=== PATIENT | male | born 1995 | race Hispanic/Latino ===

== ENCOUNTER 2017-09-01 11:03 | Inpatient (IN) | payer OTHER, SELFPAY ==
[2017-09-01 11:56] LABS: Absolute Lymphocytes (CBC) 3.1 K/uL (0.7-4.9); Absolute Monocytes 0.6 K/uL (0.1-1.3); Absolute Neutrophil 3.7 K/uL (1.8-8.0); Eosinophils % 4.8 % (0-4.4); Hematocrit 43.4 % (39.6-49.0); Lymphocytes % 39.3 % (15.3-44.8); MCH 29.1 pg (27.0-35.0); MCV 87.9 fL (80-100); MPV 9.2 fL (7.6-11.3); Monocytes % 7.5 % (3.3-12.3); RBC Red Blood Cell Count 4.94 M/uL (4.33-5.43)
[2017-09-01] MEDS ORDERED: ONDANSETRON 4 MG/2 ML VIAL ONE (11:59)
[2017-09-01] MEDS ORDERED: FENTANYL CITR 100 MCG/2 ML ONE ×2 (11:59→13:40)
[2017-09-01 12:05] LABS: BUN Blood Urea Nitrogen 12 mg/dL (6-20); Bicarbonate 26 mEq/L (21-31); Glucose Level 391 mg/dL (65-120); Potassium 3.9 mEq/L (3.6-5.0); Sodium Level 132 mEq/L (135-145)
--- NOTE | 2017-09-01 12:55 | RAD REPORT ---
EXAM DESCRIPTION: RAD - Foot Left 3 View - 09/01/2017 12:42 pm CLINICAL HISTORY: Left Foot pain FINDINGS: No fracture or dislocation is seen. No bone or joint abnormality is displayed
--- NOTE | 2017-09-01 13:44 | ER ---
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 On Keflex and Naprosyn day 6 for staph. Transition of care: patient was not received from another setting of care. Onset of symptoms is unknown. Initial Sepsis Screen: Does the patient meet any 2 criteria? No. Patient's initial sepsis screen is negative. Does the patient have a suspected source of infection? No. Patient's initial sepsis screen is negative. Care prior to arrival: None. 11:07 Method Of Arrival: Ambulatory 11:07 Acuity: MARKIE 3 hb Historical: - Allergies: 11:10 NKDA; hb - Home Meds: 11:10 Keflex Oral [Active]; Naproxen Oral [Active]; hb - PMHx: 11:10 Diabetes - IDDM; hb - PSHx: 11:10 Tonsillectomy; hb - Immunization history:: Adult Immunizations up to date. - Social history:: Smoking status: Patient uses tobacco products, denies chronic smoking, but will smoke occasionally, smokes one-half pack cigarettes per day. Screenin:29 Abuse screen: Denies threats or abuse. Denies injuries from another. Nutritional aj1 screening: No deficits noted. Tuberculosis screening: No symptoms or risk factors identified. 16:00 Fall Risk None identified. rk2 Assessment: 11:29 General: Appears in no apparent distress. uncomfortable, Behavior is calm, cooperative, aj1 appropriate for age. Pain: Complains of pain in left foot Pain does not radiate. Pain currently is 10 out of 10 on a pain scale. Quality of pain is described as throbbing, Pain began 5 days ago Aggravated by weight bearing. Neuro: Level of Consciousness is awake, alert, obeys commands, Oriented to person, place, time, situation, Speech is normal, Facial symmetry appears normal. Cardiovascular: Patient's skin is warm and dry. Edema is 3+ to left foot. Respiratory: Airway is patent Respiratory effort is even, unlabored, Respiratory pattern is regular, symmetrical. GI: No signs and/or symptoms were reported involving the gastrointestinal system. : No signs and/or symptoms were reported regarding the genitourinary system. EENT: No signs and/or symptoms were reported regarding the EENT system. Derm: redness and swelling noted to left foot. Musculoskeletal: Circulation, motion, and sensation intact. 12:24 Reassessment: Patient appears in no apparent distress at this time. No changes from aj1 previously documented assessment. Patient and/or family updated on plan of care and expected duration. Pain level reassessed. Patient is alert, oriented x 3, equal unlabored respirations, skin warm/dry/pink. 13:35 Reassessment: Patient appears in no apparent distress at this time. No changes from aj1 previously documented assessment. Patient and/or family updated on plan of care and expected duration. Pain level reassessed. Patient is alert, oriented x 3, equal unlabored respirations, skin warm/dry/pink. Patient states that his pain is coming back and he would like some more pain medication. Notified RONI Mcelroy. Order received. 14:46 General: IV Levaquin complete. SL flushed with 10ml NS without difficulty. Mo adverse aj1 reaction to medication given. 15:03 Reassessment: Patient appears in no apparent distress at this time. No changes from aj1 previously documented assessment. Patient and/or family updated on plan of care and expected duration. Pain level reassessed. Patient is alert, oriented x 3, equal unlabored respirations, skin warm/dry/pink. 15:17 Reassessment: Report to WILBERT Woodard on 4th floor. aj1 Vital Signs: 11:10 BP 140 / 94; Pulse 80; Resp 16; Temp 97.8(TE); Pulse Ox 98% on R/A; Weight 90.72 kg; hb Height 5 ft. 11 in. (180.34 cm); Pain 10/10; 12:29 BP 116 / 73; Pulse 76; Resp 18; Pulse Ox 96% on R/A; aj1 13:30 BP 128 / 75; Pulse 67; Resp 18; Pulse Ox 99% ; aj1 14:30 BP 119 / 79; Pulse 79; Resp 18; Pulse Ox 98% on R/A; aj1 11:10 Body Mass Index 27.89 (90.72 kg, 180.34 cm) hb ED Course: 11:04 Patient arrived in ED. as 11:09 Triage completed. hb 11:10 Arm band placed on right wrist. hb 11:16 Claritza Vargas, RN is Primary Nurse. aj1 11:16 Julian Osborne PA is PHCP. jr8 11:16 Dennis Beltre MD is Attending Physician. jr8 11:29 Patient has correct armband on for positive identification. Bed in low position. Call aj1 light in reach. Side rails up X 1. 11:29 No provider procedures requiring assistance completed. aj1 11:30 First set of blood cultures drawn by me. dh3 11:45 Second set of blood cultures drawn by me. Inserted saline lock: 20 gauge in right hand, dh3 using aseptic technique. Blood collected. 12:41 X-ray completed. Portable x-ray completed in exam room. Patient tolerated procedure jb2 well. 12:42 XRAY Foot LEFT 3 View In Process Unspecified. EDMS 13:43 Belén Shrap MD is Hospitalizing Provider. jr8 16:00 Patient admitted, IV remains in place. rk2 Administered Medications: 12:03 Drug: fentaNYL (PF) 75 mcg Route: IVP; Site: right antecubital; aj1 13:47 Follow up: Response: No adverse reaction aj1 12:03 Drug: Zofran 4 mg Route: IVP; Site: right wrist; aj1 13:47 Follow up: Response: No adverse reaction aj1 13:46 Drug: LevaQUIN 500 mg Volume: 100 ml; Route: IVPB; Infused Over: 60 mins; Site: right aj1 wrist; 14:45 Follow up: Response: No adverse reaction; IV Status: Completed infusion aj1 13:47 Drug: fentaNYL (PF) 75 mcg Route: IVP; Site: right wrist; aj1 15:15 Drug: vancoMYCIN 1 grams Route: IVPB; Infused Over: 2 hrs; Site: right hand; aj1 Outcome: 13:44 Decision to Hospitalize by Provider. jr8 15:59 Admitted to Med/surg accompanied by tech. rk2 15:59 Condition: good 15:59 Instructed on the need for admit. 16:01 Patient left the ED. rk2 Signatures: Dispatcher [employer] EDSD Claritza Vargas, WILBERT RN aj1 Eddie Rose jb2 Brandie Inman Josh, PA PA jr8 Sandra Bello, RN RN Kamryn Ramon 3 Marcia Durand RN RN rk2
--- NOTE | 2017-09-01 13:44 | EDPHYS ---
Physician Documentation [facility] Name: Devaughn Duff Age: 22 yrs Sex: Male : 1995 Arrival Date: 09/01/2017 Time: 11:04 Bed 23 Private MD: ED Physician Dennis Beltre HPI: 09/01 12:23 This 22 yrs old Male presents to ER via Ambulatory with complaints of Foot jr8 Pain. 12:23 The complaints affect the left foot. Onset: The symptoms/episode began/occurred jr8 gradually, 1 week(s) ago. Modifying factors: The symptoms are alleviated by nothing. the symptoms are aggravated by movement, weight bearing. Associated signs and symptoms: The patient has no apparent associated signs or symptoms. Severity of symptoms: At their worst the symptoms were moderate, in the emergency department the symptoms are unchanged. The patient has not experienced similar symptoms in the past. The patient has been recently seen by a physician:. 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 Stated that he was around a lot of chemical water. Had leak in boot. Noticed that his foot started to have pain, swelling, erythema. Was seen by provider in [place] and has been on Antibiotics for 4 days now. Pain is increasing along with swelling and bruising to bottom of foot . Historical: - Allergies: 11:10 NKDA; hb - Home Meds: 11:10 Keflex Oral [Active]; Naproxen Oral [Active]; hb - PMHx: 11:10 Diabetes - IDDM; hb - PSHx: 11:10 Tonsillectomy; hb - Immunization history:: Adult Immunizations up to date. - Social history:: Smoking status: Patient uses tobacco products, denies chronic smoking, but will smoke occasionally, smokes one-half pack cigarettes per day. ROS: 12:23 Eyes: Negative for injury, pain, redness, and discharge, ENT: Negative for injury, jr8 pain, and discharge, Neck: Negative for injury, pain, and swelling, Cardiovascular: Negative for chest pain, palpitations, and edema, Respiratory: Negative for shortness of breath, cough, wheezing, and pleuritic chest pain, Abdomen/GI: Negative for abdominal pain, nausea, vomiting, diarrhea, and constipation, Back: Negative for injury and pain, Skin: Negative for injury, rash, and discoloration, Neuro: Negative for headache, weakness, numbness, tingling, and seizure. 12:23 MS/extremity: Positive for ecchymosis, erythema, pain, swelling, tenderness, warmth, of the left foot. Exam: 12:23 Cardiovascular: Regular rate and rhythm with a normal S1 and S2. No gallops, murmurs, jr8 or rubs. Normal PMI, no JVD. No pulse deficits. Respiratory: Lungs have equal breath sounds bilaterally, clear to auscultation and percussion. No rales, rhonchi or wheezes noted. No increased work of breathing, no retractions or nasal flaring. Skin: Warm, dry with normal turgor. Normal color with no rashes, no lesions, and no evidence of cellulitis. Neuro: Awake and alert, GCS 15, oriented to person, place, time, and situation. Cranial nerves II-XII grossly intact. Motor strength 5/5 in all extremities. Sensory grossly intact. Cerebellar exam normal. Normal gait. 12:23 Musculoskeletal/extremity: Extremities: grossly normal except: noted in the left foot: ecchymosis, erythema, pain, swelling, tenderness, all to forefoot and toes of left foot, ROM: intact in all extremities, Circulation is intact in all extremities. Sensation intact. Vital Signs: 11:10 BP 140 / 94; Pulse 80; Resp 16; Temp 97.8(TE); Pulse Ox 98% on R/A; Weight 90.72 kg; hb Height 5 ft. 11 in. (180.34 cm); Pain 10/10; 12:29 BP 116 / 73; Pulse 76; Resp 18; Pulse Ox 96% on R/A; aj1 13:30 BP 128 / 75; Pulse 67; Resp 18; Pulse Ox 99% ; aj1 14:30 BP 119 / 79; Pulse 79; Resp 18; Pulse Ox 98% on R/A; aj1 11:10 Body Mass Index 27.89 (90.72 kg, 180.34 cm) hb MDM: 11:16 Patient medically screened. jr8 13:39 Data reviewed: vital signs, nurses notes, lab test result(s), radiologic studies, plain jr8 films, and as a result, I will discharge patient. Data interpreted: Pulse oximetry: on room air is 96 %. Interpretation: normal. Counseling: I had a detailed discussion with the patient and/or guardian regarding: the historical points, exam findings, and any diagnostic results supporting the discharge/admit diagnosis, lab results, radiology results, the need for further work-up and treatment in the hospital. Physician consultation: Belén Sharp MD was called at 13:43, was contacted at 13:43, regarding admission, to the medical/surgical unit. consult, patient's condition, and will see patient. 09/01 11:22 Order name: CBC with Diff; Complete Time: 12:21 [facility] 09/01 11:22 Order name: Basic Metabolic Panel; Complete Time: 12:21 [facility] 09/01 11:22 Order name: Blood Culture Adult (2) jr 09/01 14:05 Order name: Basic Metabolic Panel [facility] 09/01 14:05 Order name: Basic Metabolic Panel [facility] 09/01 14:05 Order name: Basic Metabolic Panel [facility] 09/01 11:22 Order name: XRAY Foot LEFT 3 View; Complete Time: 13:00 [facility] 09/01 14:05 Order name: Basic Metabolic Panel [facility]NE 09/01 14:05 Order name: CBC with Automated Diff EDMS 09/01 14:05 Order name: CBC with Automated Diff EDMS 09/01 14:05 Order name: CBC with Automated Diff EDMS 09/01 14:05 Order name: CBC with Automated Diff EDMS 09/01 14:06 Order name: Hemoglobin A1C [facility] 09/01 11:22 Order name: IV; Complete Time: 11:49 [facility] 09/01 14:05 Order name: Carb Control (ADA) [address] [facility] 09/01 14:05 Order name: CONS Pharmacy Consult [facility] Administered Medications: 12:03 Drug: fentaNYL (PF) 75 mcg Route: IVP; Site: right antecubital; aj1 13:47 Follow up: Response: No adverse reaction aj1 12:03 Drug: Zofran 4 mg Route: IVP; Site: right wrist; aj1 13:47 Follow up: Response: No adverse reaction aj1 13:46 Drug: LevaQUIN 500 mg Volume: 100 ml; Route: IVPB; Infused Over: 60 mins; Site: right aj1 wrist; 14:45 Follow up: Response: No adverse reaction; IV Status: Completed infusion aj1 13:47 Drug: fentaNYL (PF) 75 mcg Route: IVP; Site: right wrist; aj1 15:15 Drug: vancoMYCIN 1 grams Route: IVPB; Infused Over: 2 hrs; Site: right hand; aj1 Disposition: 09/01/17 13:44 Hospitalization ordered by Belén Sharp for Inpatient Admission. Preliminary diagnosis is Cellulitis of left lower limb - left foot. - Bed requested for Telemetry/MedSurg (Inpatient). - Status is Inpatient Admission. rk2 - Condition is Stable. - Problem is new. - Symptoms are unchanged. UTI on Admission? No Addendum: 09/05/2017 19:10 Co-signature as Attending Physician, Dennis Beltre MD. g s Signatures: Dispatcher [employer] EDMS Claritza Vargas RN RN aj1 Ramya Gallagher RN RN dw Julian Osborne PA PA jr8 Sandra Bello RN WILBERT Dennis Beltre MD MD Marcia Durand RN RN rk2 Corrections: (The following items were deleted from the chart) 09/01 14:59 13:44 Hospitalization Ordered by Belén Sharp MD for Inpatient Admission. Preliminary dw diagnosis is Cellulitis of left lower limb - left foot. Bed requested for Telemetry/MedSurg (Inpatient). Status is Inpatient Admission. Condition is Stable. Problem is new. Symptoms are unchanged. UTI on Admission? No. jr8 16:01 14:59 09/01/2017 13:44 Hospitalization Ordered by Belén Sharp MD for Inpatient rk2 Admission. Preliminary diagnosis is Cellulitis of left lower limb - left foot. Bed requested for Telemetry/MedSurg (Inpatient). Status is Inpatient Admission. Condition is Stable. Problem is new. Symptoms are unchanged. UTI on Admission? No. dw
[2017-09-01] MEDS ORDERED: ACETAMINOPHEN 500 MG TAB PO PRN (14:02)
[2017-09-01] MEDS ORDERED: VANCOMYCIN/NS 1 gm 1 GM/250 ML BAG ONE (15:08)
[2017-09-01] MEDS: VANCOMYCIN 1.75 GM in NA CHLORIDE 0.9% 500 ML IV SCH (16:00)
[2017-09-01] MEDS: HYDROCODONE/APAP 7.5/325 MG TAB PO PRN ×2 (16:13→22:17)
[2017-09-01] MEDS: INSULIN -REGULAR HUMAN 50 UNIT/0.5 ML ML SQ SCH ×2 (16:36→21:06)
[2017-09-01] MEDS: NA CHLORIDE 0.9% 1,000 ML IV SCH (16:37)
[2017-09-01] MEDS: PIPER/TAZO/NS 3.375gm 3.375 GM/100 ML BAG IVPB SCH (17:11)
[2017-09-01] MEDS ORDERED: VANCOMYCIN 750 MG in NA CHLORIDE 0.9% 150 ML IVPB ONE (17:15)
[2017-09-01 17:22] VITALS: BMI 27.8
[2017-09-01] MEDS ORDERED: Morphine 2 MG/2 ML SYR IV ONE (18:42)
[2017-09-01] MEDS: INSULIN DETEMIR 100 UNIT/1 ML INSULIN SQ SCH (21:05)
[2017-09-01] MEDS: NYSTATIN 500,000 UNIT/5 ML UDC PO SCH (21:06)
[2017-09-02] MEDS: NA CHLORIDE 0.9% 1,000 ML IV SCH ×3 (00:28→20:31)
[2017-09-02] MEDS ORDERED: PIPER/TAZO/NS 3.375gm 3.375 GM/100 ML BAG ONE (00:28)
--- NOTE | 2017-09-02 00:46 | CON ---
Date of Consultation: 09/01/2017 Diagnosis: Left foot swelling. History Of Present Illness: These the case of a 22-year-old patient, comes to us with left foot swel ling on the lateral aspect of the ankle region. The patient came here, said that he had pain and was admitted with a cellulitis, although I do not see any redness over the area. He has swelling over t he lateral side of the foot and ankle region. 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 He was even seen by a doctor in that area and they could not find a reason of his swelling. He comes to his area once again complaining of pain and he was admitted for cellulitis, and a surgical consult was obtained. He do not recall any trauma other than just walking and standing for a long time. He denies any skin break, any wounds in that area, o r any drainage. He denies any dysuria, hematuria, hematochezia, or melena. Denies any recent travel ing out of the country. Denies any family members sick at home. He has some bruising of the lateral aspect of his foot. Allergies: NONE. Medications: Keflex. Medical Problems: Diabetes. Surgical History: Tonsillectomy. Social History: He smokes about half pack a day. He does not drink alcohol. Family History: Diabetes. Review of Systems: Constitutional: Denies any fever, any chills. Respiratory: Denies any shortness of breath. Gastrointestinal: Denies any nausea or vomiting. Integumentary: As above. Physical Examination: General: The patient is awake and alert. HEENT: Pupils are equal and reactive, anicteric. Neck: Supple. Abdomen: Soft and depressible. Nontender. Nondistended. Extremities: Lower extremity shows full range of motion with dorsalis pedis, posterior tibialis, fem oral, and popliteal pulses present. Over the left foot lateral just proximal, a half of the foot and just next to the malleolar area, the patient has some swelling. It is soft. There is no fluctuance or crepitus in that area. There are some bruises present, almost has the appearance of a sprained a nkle, although he does not claim to sprain that ankle. I do not see any open skin in the area or david n in between toes or any open ulcer. Sensation is intact. No cyanosis. Full range of motion. Laboratory Data: Blood work shows WBC count of 7.8, potassium 3.9, and glucose 391. Foot x-ray inte rpreted by Dr. Reyes as no fracture. Assessment: Left foot swelling, etiology of that is unknown. I do not see any increased temperature or erythema in that area. It looked what sounds like ecchymosis, like any traumatic sprain of that ankle, although he does not claim to have sprained that ankle before. I talk to the primary doctor. I believe the patient should have another study in the form of an MRI for and look at the ligaments in that area. From the surgical standpoint at this moment, we have nothing to drain. MOLINA/EM Voice ID: [id number] Report ID: [id number]
[2017-09-02] MEDS: PIPER/TAZO/NS 3.375gm 3.375 GM/100 ML BAG IVPB SCH ×3 (01:00→17:54)
--- NOTE | 2017-09-02 01:55 | HP ---
Date of Admission: 09/01/2017 Chief Complaint: Left foot pain. Primary Care Physician: None. History Of Present Illness: The patient is a 22-year-old type 2 diabetic who has been a diabetic sin ce the age of 14. He states that he has been [facility] and was told he is a type 2 diabetic. He does not take any insulin on a regular basis. He states that he checks his blood sugar twice a day and runs between the 80s to 120s. The patient comes in with left-sided foot pain, swell ing, and redness after he was exposed to some contaminated water with caustic agents and another cont amination after he was doing a takedown in [place]. The patient was seen by physicians over there an d was prescribed Keflex. The patient has been on Keflex for approximately 5 to 6 days; however, cont inues to have pain, erythema, and swelling of his left foot. The patient denies any fevers, chills, nausea, vomiting, diarrhea, chest pain, or shortness of breath. The patient comes in to the hospital for worsening of his pain and no improvement in his foot despite antibiotics. The patient's symptom s are constant, moderate, and progressively worsening. No alleviating or aggravating factors. In th e ER, his workup revealed a normal WBC count. His glucose was 391. His anion gap was closed. The p atient's x-ray of the foot did not show any free air. The patient was referred for admission. When seen in the ER, the patient was awake, alert, oriented x3, in some mild distress. Past Medical History: Type 2 diabetes mellitus. Past Surgical History: Tonsillectomy. Allergies: NO KNOWN DRUG ALLERGIES. Medications: No medications on a long-term regular basis. The patient is currently taking Keflex an d ibuprofen for pain. Family History: Diabetes runs in the family. Social History: The patient is , has a son. Does report occasional smoking, drinking, and ma rijuana use. Review of Systems: An 11-point system reviewed and negative except as per HPI. Physical Examination: Vital Signs: Temperature 97.8, heart rate 80, blood pressure 140/94, respirations 16, and O2 98% on room air. General: Awake, alert, oriented x3, some mild distress, slightly ill-appearing male. HEENT: Normocephalic, atraumatic. PERRLA. EOMI. Moist mucous membranes. Oropharynx is clear. Co njunctivae are anicteric. Neck: Supple. No JVD. Trachea midline. CV: S1, S2. Regular rate and rhythm. Peripheral pulses present bilaterally. Respiratory: Clear to auscultation bilaterally. No wheezing. No stridor. No use of accessory musc les. Gastrointestinal: Abdomen is soft, nontender, nondistended. Positive bowel sounds. No guarding or rigidity. Extremities: No clubbing or cyanosis. Edema to the left foot. Integumentary: The patient does have erythema of the left foot plantar aspect, with some swelling an d tenderness to palpation. Neurologic: Cranial nerves 2 through 12 intact grossly. No focal neurological deficit. Speech is n ormal. Sensation is decreased to light touch on the feet. Psychiatric: Mood is anxious. Affect is congruent with mood. Insight and judgment are fair. Laboratory Data: Sodium 132, potassium 3.9, chloride 99, CO2 of 26, BUN 12, creatinine 0.58, glucose 391, and calcium 9.1. WBC 7.8, H and H 14.4 and 43.4, platelets 248, and neutrophils 47.4%. X-ray of the foot personally reviewed, shows no fracture or dislocation. Assessment And Plan: A 22-year-old male with; 1.Cellulitis of the left foot. We will continue with broad-spectrum IV antibiotics. We will obtain blood cultures. We will obtain surgical consultation. Foot x-ray does not show any free air. 2.Diabetes mellitus type 2, non-insulin requiring. The patient's glucose level currently is 391. W e will check hemoglobin A1c. Start on moderate sliding scale and continue Accu-Cheks. 3.Gastrointestinal and deep venous thrombosis prophylaxis with PPI and SCDs. Ambulate. Plan: Admit the patient to Med-Surg. Place as inpatient. /EM Voice ID: [id number]
[2017-09-02] MEDS ORDERED: VANCOMYCIN 500 MG/VIAL ONE (02:40)
[2017-09-02] MEDS ORDERED: VANCOMYCIN 1 GM/VIAL ONE (02:41)
[2017-09-02] MEDS ORDERED: NA CHLORIDE 0.9% 500 ML ONE (03:35)
[2017-09-02] MEDS: VANCOMYCIN 1.75 GM in NA CHLORIDE 0.9% 500 ML IV SCH ×2 (03:58→17:54)
[2017-09-02] MEDS: HYDROCODONE/APAP 7.5/325 MG TAB PO PRN ×4 (04:10→20:15)
[2017-09-02 04:53] LABS: Absolute Lymphocytes (CBC) 3.8 K/uL (0.7-4.9); Absolute Monocytes 0.7 K/uL (0.1-1.3); Absolute Neutrophil 3.7 K/uL (1.8-8.0); Basophils % 0.7 % (0-1.3); Eosinophils % 4.3 % (0-4.4); Hematocrit 40.3 % (39.6-49.0); Lymphocytes % 44.5 % (15.3-44.8); MCH 29.8 pg (27.0-35.0); MCV 87.9 fL (80-100); MPV 9.1 fL (7.6-11.3); RBC Red Blood Cell Count 4.59 M/uL (4.33-5.43)
[2017-09-02 05:31] LABS: BUN Blood Urea Nitrogen 13 mg/dL (6-20); Bicarbonate 27 mEq/L (21-31); Glucose Level 248 mg/dL (65-120); Potassium 3.6 mEq/L (3.6-5.0); Sodium Level 134 mEq/L (135-145)
[2017-09-02] MEDS: INSULIN -REGULAR HUMAN 50 UNIT/0.5 ML ML SQ SCH ×4 (08:12→20:17)
[2017-09-02] MEDS: NYSTATIN 500,000 UNIT/5 ML UDC PO SCH ×4 (08:12→20:17)
[2017-09-02] MEDS: INSULIN DETEMIR 100 UNIT/1 ML INSULIN SQ SCH ×2 (08:12→20:16)
[2017-09-02] MEDS: ONDANSETRON 4 MG/2 ML VIAL IV PRN ×2 (08:13→20:14)
[2017-09-02 09:55] LABS: A1c Component 1.6 mg/dL; Hemoglobin A1c 12.8 % (4-6.0)
[2017-09-02 09:55] LABS: Urine Appearance CLEAR; Urine Bilirubin NEGATIVE (NEG); Urine Blood NEGATIVE (NEG); Urine Color YELLOW; Urine Glucose 3+ (NEG); Urine Protein NEGATIVE (NEG); Urine Specific Gravity >=1.030 (1.005-1.030); Urine Urobilinogen 0.2 mg/dL (0.2-1.0)
[2017-09-02 10:10] LABS: Urine Microscopic Reflex NO UMIC
--- NOTE | 2017-09-02 12:24 | RAD REPORT ---
EXAM DESCRIPTION: MRI - Foot Left Wo Cont - 09/02/2017 11:38 am CLINICAL HISTORY: Soft tissue infection, pain, possible osteomyelitis COMPARISON: None. TECHNIQUE: Multiplanar imaging of the foot performed using T1 weighted, T2 fat saturation and T2 sti r sequencing. FINDINGS: The T2 fat sat and T2 stir sequences show an increase in signal intensity in the distal ph alanges. On T1 weighted imaging there is normal hyperintense fatty marrow signal. Much of the T2 sign al abnormality is related to the toes vein along the edge of the magnetic field. Distal phalanges julian ma may be present but the findings collectively do not meet the criteria for osteomyelitis diagnosis. No cortical disruption. No fracture or other acute bone process identifiable. Soft tissues of the to es do appear to be edematous but no abscess or drainable fluid collection. IMPRESSION: Edema may be present in the distal phalanges but no osteomyelitis findings seen. No abscess or drainable fluid collection.
--- NOTE | 2017-09-02 14:24 | P.PN ---
Subjective Date of Service: 09/02/17 Subjective: Tolerating diet Review of Systems General: Unremarkable Respiratory: Unremarkable Cardiovascular: Unremarkable Gastrointestinal: Unremarkable Musculoskeletal: Foot Pain, As per HPI Integumentary: Unremarkable Physical Examination - Vital Signs Temperature: 98.1 F Blood Pressure: 137/75 Pulse: 65 Respirations: 18 Pulse Ox (%): 99 - Physical Exam General: Alert, In no apparent distress, Oriented x3, Cooperative HEENT: PERRLA, EOMI Neck: Supple Gastrointestinal: Soft and benign Musculoskeletal: No erythema, No warmth, Swelling (lateral proximal foot, no fluctuancy, no cyanosis, +DP/PT, ) Integumentary: No erythema, No warmth, No cyanosis Neurological: Normal speech, Cranial nerves 3-12 intact - Studies Microbiology Data (last 24 hrs): 09/01/17 11:30 Blood - Blood Anaerobic Blood Culture - Final Assessment And Plan - Plan MRI reviewed No general surgery intervention planned. consider ortho evaluation
[2017-09-02] MEDS ORDERED: GLUCAGON 1 MG/VIAL IM PRN (14:53)
[2017-09-02] MEDS ORDERED: D50W 25 GM/50 ML SYRINGE IV PRN (14:53)
[2017-09-02] MEDS ORDERED: ENOXAPARIN 40 MG/0.4 ML SQ SCH (17:00)
--- NOTE | 2017-09-02 20:10 | PN ---
Subjective: The patient seen and examined. Chart reviewed and case discussed with RN and Dr. Rene sahu. The patient states his pain is improved. Swelling has gone down. Review of Systems: Negative except as above. Medications: Reviewed. Physical Examination: Vital Signs: Temperature 98.1, heart rate 65, blood pressure 137/75, respirations 18, O2 99% on room air. General: Awake, alert, oriented x3, some mild distress. CV: S1, S2. No murmurs. Respiratory: Moving air well bilaterally. No wheezing. Gastrointestinal: Abdomen is soft, nontender, nondistended. Positive bowel sounds. Extremities: No clubbing, cyanosis. The patient does have left foot edema. Skin: Mild erythema improving and almost resolved. Mild tenderness to palpation, left foot. Neurologic: Nonfocal. Does have some decreased sensation to the lower extremities to light touch. Laboratory Data: Sodium 134, potassium 3.6, chloride 101, CO2 27, BUN 13, creatinine 0.47, glucose 2 48. Hemoglobin A1c 12.8%. Calcium 8.9. WBC 8.6, H and H 13.7 and 40.3, platelets 216. Blood cultu res no growth to date. MRI of the foot shows edema may be present in the distal phalanges, but no os teomyelitis findings seen. No abscess or drainable fluid collection. Assessment And Plan: A 22-year-old male with: 1.Left foot cellulitis. We will continue with IV antibiotics. We will continue with IV fluids. Fo llow up on blood cultures. MRI is negative for osteo. No surgical intervention planned by Dr. Candida lopez. Appreciate his input. 2.Diabetes mellitus type 2 non-insulin requiring, uncontrolled. Hemoglobin A1c 12%. We will contin ue to monitor diabetic education. 3.GI, DVT prophylaxis with PPI. We will start on Lovenox. There is no surgical intervention planne d. 4.Plan, likely discharge in a.m. if continues to improve. 5.Thrush, nystatin swish and swallow. SA/MODL Voice ID: [id number] Report ID: [id number]
[2017-09-03] MEDS: HYDROCODONE/APAP 7.5/325 MG TAB PO PRN ×3 (01:24→11:22)
[2017-09-03] MEDS: PIPER/TAZO/NS 3.375gm 3.375 GM/100 ML BAG IVPB SCH ×2 (01:25→09:16)
[2017-09-03 02:57] LABS: Absolute Lymphocytes (CBC) 3.6 K/uL (0.7-4.9); Absolute Monocytes 0.7 K/uL (0.1-1.3); Absolute Neutrophil 4.1 K/uL (1.8-8.0); Basophils % 0.8 % (0-1.3); Eosinophils % 3.4 % (0-4.4); Hematocrit 39.4 % (39.6-49.0); Lymphocytes % 41.2 % (15.3-44.8); MCH 29.4 pg (27.0-35.0); MCV 87.3 fL (80-100); MPV 8.8 fL (7.6-11.3); Monocytes % 8.2 % (3.3-12.3); RBC Red Blood Cell Count 4.51 M/uL (4.33-5.43)
[2017-09-03] MEDS: VANCOMYCIN 1.75 GM in NA CHLORIDE 0.9% 500 ML IV SCH (04:15)
[2017-09-03] MEDS ORDERED: POTASSIUM 25 MEQ EFFERV TAB PO ONE (05:28)
[2017-09-03 05:32] LABS: BUN Blood Urea Nitrogen 12 mg/dL (6-20); Bicarbonate 28 mEq/L (21-31); Glucose Level 156 mg/dL (65-120); Potassium 3.3 mEq/L (3.6-5.0); Sodium Level 134 mEq/L (135-145)
[2017-09-03 06:03] VITALS: O2SAT 95
[2017-09-03 06:23] LABS: Magnesium 1.9 mg/dL (1.8-2.5)
[2017-09-03] MEDS: NA CHLORIDE 0.9% 1,000 ML IV SCH (07:00)
[2017-09-03] MEDS: ONDANSETRON 4 MG/2 ML VIAL IV PRN (07:17)
[2017-09-03] MEDS: INSULIN -REGULAR HUMAN 50 UNIT/0.5 ML ML SQ SCH ×2 (09:08→12:38)
[2017-09-03] MEDS: INSULIN DETEMIR 100 UNIT/1 ML INSULIN SQ SCH (09:09)
[2017-09-03] MEDS: NYSTATIN 500,000 UNIT/5 ML UDC PO SCH ×2 (09:12→12:44)
[2017-09-03 12:21] VITALS: BP 131/83; TEMP 98.1
--- NOTE | 2017-09-04 15:19 | DS ---
Date of Discharge: 09/03/2017 Consultants: Dr. Inman with Surgery. Procedures: None. Admitting Diagnoses: 1.Left foot cellulitis. 2.Diabetes mellitus type 2, non-insulin requiring patient, uncontrolled diabetes. Discharge Diagnoses: 1.Left foot cellulitis, resolved. 2.Diabetes mellitus type 2, non-insulin requiring with hyperglycemia, uncontrolled. Hemoglobin A1c 12%. Started on long-acting insulin. 3.Thrush. Nystatin swish and swallow. Hospital Course: The patient is a 22-year-old male, who comes in with left foot pain and some mild e rythema after being exposed to some caustic and uncleaned environment as part of his work duties. Th e patient had a normal white count, did have some hypokalemia, which was replaced. He did have some uncontrolled blood sugars. His A1c was elevated at 12.8%. He was counseled regarding diabetes. He also received diabetic education and the patient did well with IV antibiotics. He was also seen by Andrés Inman for the swelling and possible abscess of his foot. MRI was done, which showed some edema , but no osteomyelitis findings or abscess or drainable fluid collection. The patient was then clear ed for discharge from a surgical standpoint. His pain had resolved. He was able to ambulate without difficulty. Blood cultures had remained negative. The patient was counseled extensively on his elver betes. He was instructed to start taking insulin, which was prescribed for him and to continue monit oring his glucose at least twice a day including fasting and postprandial. The patient was discharge d home in a stable condition. Activity: As tolerated. Medications: As per medication reconciliation list. Discharge Instructions: The patient to finish up a dose of Keflex that was provided to him in [facility] with initial evaluation of his foot. Return to ER for worsening condition. Follow up with Dr. Trisha cason as per his recommendation. Establish care with PCP. Diet: Diabetic. Physical Examination: General: Awake, alert, oriented, no acute distress. CV: S1, S2. No murmurs. Respiratory: Moving air well bilaterally. No wheezing. Abdomen: Soft, nontender, and nondistended. Positive bowel sounds. Extremities: No clubbing, cyanosis, edema. Neurologic: Nonfocal. Musculoskeletal: Left foot, no erythema or tenderness to palpation. Range of motion is normal. Total time spent discharging the patient was 39 minutes. SA/MODL Voice ID: [id number] Report ID: [id number]
== END 2017-09-03 13:29 | disposition home or self-care (01) | DRG 603 ==
LOC: ER 11:03 → ERHOLD 14:01 → 4TH 15:26
PROVIDERS: ADMIT Family Medicine; ATTEND Family Medicine
DX: L03.116 Cellulitis of left lower limb (principal); B37.0 Candidal stomatitis; E11.65 Type 2 diabetes mellitus with hyperglycemia; E87.6 Hypokalemia; F17.210 Nicotine dependence, cigarettes, uncomplicated
CPT/HCPCS: 36415; 80048; 80202; 81003; 82962; 83036; 83735; 84132; 85025; 87040; 87086; 87088; 94760; 99285; J1650; J2270; J2405; J2543; J3010; J3370; J7030

== ENCOUNTER 2017-09-03 18:49 | Emergency (ER) | payer SELFPAY ==
[2017-09-03] MEDS ORDERED: ONDANSETRON 4 MG (ODT) TAB ONE ×2 (19:43→19:50)
[2017-09-03 19:49] LABS: Arterial Blood Carboxyhemoglob 1.8 % (0-1.5); Blood Gas Oxyhemoglobin 95.4 % (94-97); Blood O2 Saturation 97.8 % (92-98.5)
[2017-09-03] MEDS ORDERED: NA CHLORIDE 0.9% 1,000 ML ONE (20:51)
[2017-09-03 21:40] LABS: Absolute Lymphocytes (CBC) 1.6 K/uL (0.7-4.9); Absolute Monocytes 0.9 K/uL (0.1-1.3); Absolute Neutrophil 7.7 K/uL (1.8-8.0); Basophils % 0.6 % (0-1.3); Eosinophils % 1.1 % (0-4.4); Hematocrit 42.4 % (39.6-49.0); Lymphocytes % 15.7 % (15.3-44.8); MCH 29.2 pg (27.0-35.0); MCV 87.3 fL (80-100); MPV 8.9 fL (7.6-11.3); Monocytes % 9.1 % (3.3-12.3); RBC Red Blood Cell Count 4.86 M/uL (4.33-5.43)
[2017-09-03 21:49] LABS: Bicarbonate 29 mEq/L (21-31); Glucose Level 238 mg/dL (65-120); Potassium 3.7 mEq/L (3.6-5.0); Sodium Level 135 mEq/L (135-145)
[2017-09-03 21:50] LABS: BUN Blood Urea Nitrogen 11 mg/dL (6-20)
--- NOTE | 2017-09-03 22:04 | ER ---
Nurse's Notes [facility] Name: Devaughn Duff Age: 22 yrs Sex: Male : 1995 Arrival Date: 09/03/2017 Time: 18:51 Bed 26 Private MD: Diagnosis: Headache;Vomiting, unspecified Presentation: 09/03 18:53 Presenting complaint: Patient states: Discharged from this hospital at 1400 today and aj reports N/V since. Transition of care: patient was not received from another setting of care. Onset of symptoms was September 03, 2017. Initial Sepsis Screen: Does the patient meet any 2 criteria? No. Patient's initial sepsis screen is negative. Does the patient have a suspected source of infection? No. Patient's initial sepsis screen is negative. Care prior to arrival: None. 18:53 Method Of Arrival: Ambulatory 18:53 Acuity: MARKIE 3 Triage Assessment: 18:53 General: Appears in no apparent distress. uncomfortable, Behavior is calm, cooperative, aj appropriate for age. Pain: Complains of pain in face and scalp. Neuro: Level of Consciousness is awake, alert, obeys commands, Oriented to person, place, time, situation, Appropriate for age Reports headache. Respiratory: Airway is patent Respiratory effort is even, unlabored, Respiratory pattern is regular, symmetrical. GI: Reports nausea. Derm: Skin is intact, is healthy with good turgor, Skin is pink, warm \T\ dry. normal. Historical: - Allergies: 18:55 NKDA; aj - Home Meds: 18:55 Insulin: Regular Sub-Q [Active]; aj - PMHx: 18:55 Diabetes - IDDM; aj - PSHx: 18:55 None; aj - Immunization history:: Adult Immunizations up to date. - Social history:: Smoking status: Patient uses tobacco products, smokes one-half pack cigarettes per day. Screenin:30 Abuse screen: Denies threats or abuse. rk2 20:30 Nutritional screening: No deficits noted. Tuberculosis screening: No symptoms or risk rk2 factors identified. Fall Risk None identified. Assessment: 20:00 General: Appears in no apparent distress. rk2 20:00 General: Appears well developed, well nourished, Behavior is calm, cooperative. Pain: rk2 Complains of pain in headache. Neuro: Level of Consciousness is alert, obeys commands, Oriented to person, place, time, situation. Respiratory: Airway is patent Respiratory effort is even, unlabored, Respiratory pattern is regular, symmetrical. GI: Reports nausea. GI: Abdomen is Bowel sounds. Derm: Skin is pink, warm \T\ dry. 22:20 Reassessment: Patient appears in no apparent distress at this time. Patient is alert, aa1 oriented x 3, equal unlabored respirations, skin warm/dry/pink. Discussed d/c \T\ f/u instructions with pt; denies questions or concerns at this time Patient states feeling better. Vital Signs: 18:53 BP 134 / 90; Pulse 74; Resp 19; Temp 97.4; Pulse Ox 98% on R/A; Weight 90.72 kg; Height aj 5 ft. 11 in. (180.34 cm); Pain 10/10; 18:53 Body Mass Index 27.89 (90.72 kg, 180.34 cm) ED Course: 18:51 Patient arrived in ED. mr 18:53 Arm band placed on right wrist. Patient placed in an exam room. aj 18:54 Triage completed. aj 19:36 Marcia Durand, RN is Primary Nurse. rk2 19:37 Lois Horn FNP-C is PHCP. snw 19:37 Bethel William MD is Attending Physician. snw 20:30 Patient has correct armband on for positive identification. Bed in low position. Call rk2 light in reach. Side rails up X2. 22:20 No provider procedures requiring assistance completed. IV discontinued, intact, aa1 bleeding controlled, No redness/swelling at site. Pressure dressing applied. Administered Medications: 19:51 Drug: Zofran 4 mg Route: PO; rk2 22:30 Follow up: Response: No adverse reaction; Nausea unchanged rk2 21:24 Drug: NS 0.9% 1000 ml Route: IV; Rate: 125 ml/hr; Site: right hand; rk2 22:22 Follow up: IV Status: Completed infusion aa1 22:14 Drug: Phenergan 25 mg Route: IVP; Site: right hand; rk2 22:22 Follow up: Response: No adverse reaction; Nausea is decreased aa1 Outcome: 22:03 Discharge ordered by . snw 22:20 Discharged to home ambulatory, with significant other. aa1 22:20 Condition: good 22:20 Discharge instructions given to patient, significant other, Instructed on discharge instructions, follow up and referral plans. medication usage, Demonstrated understanding of instructions, follow-up care, medications, Prescriptions given X 1. 22:22 Patient left the ED. aa1 Signatures: Jaja Elizabeth RN RN aa1 Jaki Fisher RN RN aj Therrien, Shelly, SCREEN PRINTING STENCIL PREPARER-C SCREEN PRINTING STENCIL PREPARER-Csnw Debora Healy mr Marcia Durand RN RN rk2 Corrections: (The following items were deleted from the chart) 18:55 18:53 Acuity: MARKIE 4 myra renteria
--- NOTE | 2017-09-03 22:04 | EDPHYS ---
Physician Documentation [facility] Name: Devaughn Duff Age: 22 yrs Sex: Male : 1995 Arrival Date: 09/03/2017 Time: 18:51 Bed 26 Private MD: ED Physician Bethel William HPI: 09/03 21:24 This 22 yrs old Male presents to ER via Ambulatory with complaints of Vomiting.snw 21:24 The patient presents to the emergency department with nausea, vomiting. Onset: The snw symptoms/episode began/occurred suddenly, today. Possible causes: unknown. The symptoms are aggravated by nothing. Associated signs and symptoms: Pertinent positives: headache. Severity of symptoms: At their worst the symptoms were moderate. The patient has experienced similar episodes in the past, multiple times. The patient has been recently been admitted at [facility], was discharged earlier today, cellulitis, DKA, hypokalemia. . Pt dc at 1400, states he had a headache. Went home to eat. Took a nap and awoke vomiting with significant pounding headache. Historical: - Allergies: 18:55 NKDA; aj - Home Meds: 18:55 Insulin: Regular Sub-Q [Active]; aj - PMHx: 18:55 Diabetes - IDDM; aj - PSHx: 18:55 None; aj - Immunization history:: Adult Immunizations up to date. - Social history:: Smoking status: Patient uses tobacco products, smokes one-half pack cigarettes per day. ROS: 21:24 Eyes: Negative for injury, pain, redness, and discharge, ENT: Negative for injury, snw pain, and discharge, Neck: Negative for injury, pain, and swelling, Cardiovascular: Negative for chest pain, palpitations, and edema, Respiratory: Negative for shortness of breath, cough, wheezing, and pleuritic chest pain. 21:24 Back: Negative for injury and pain, : Negative for injury, bleeding, discharge, and swelling, MS/Extremity: Negative for injury and deformity, Skin: Negative for injury, rash, and discoloration. 21:24 Constitutional: Positive for malaise, poor PO intake. 21:24 Abdomen/GI: Positive for nausea and vomiting. 21:24 Neuro: Positive for headache. Exam: 21:23 Constitutional: This is a well developed, well nourished patient who is awake, alert, snw and in no acute distress. 21:23 Eyes: Pupils equal round and reactive to light, extra-ocular motions intact. Lids and lashes normal. Conjunctiva and sclera are non-icteric and not injected. Cornea within normal limits. Periorbital areas with no swelling, redness, or edema. ENT: Nares patent. No nasal discharge, no septal abnormalities noted. Tympanic membranes are normal and external auditory canals are clear. Oropharynx with no redness, swelling, or masses, exudates, or evidence of obstruction, uvula midline. Mucous membranes moist. Neck: Trachea midline, no thyromegaly or masses palpated, and no cervical lymphadenopathy. Supple, full range of motion without nuchal rigidity, or vertebral point tenderness. No Meningismus. Chest/axilla: Normal chest wall appearance and motion. Nontender with no deformity. No lesions are appreciated. Cardiovascular: Regular rate and rhythm with a normal S1 and S2. No gallops, murmurs, or rubs. Normal PMI, no JVD. No pulse deficits. Respiratory: Lungs have equal breath sounds bilaterally, clear to auscultation and percussion. No rales, rhonchi or wheezes noted. No increased work of breathing, no retractions or nasal flaring. Abdomen/GI: Soft, non-tender, with normal bowel sounds. No distension or tympany. No guarding or rebound. No evidence of tenderness throughout. Back: No spinal tenderness. No costovertebral tenderness. Full range of motion. Skin: Warm, dry with normal turgor. Normal color with no rashes, no lesions, and no evidence of cellulitis. MS/ Extremity: Pulses equal, no cyanosis. Neurovascular intact. Full, normal range of motion. Neuro: Awake and alert, GCS 15, oriented to person, place, time, and situation. Cranial nerves II-XII grossly intact. Motor strength 5/5 in all extremities. Sensory grossly intact. Cerebellar exam normal. Normal gait. Psych: Awake, alert, with orientation to person, place and time. Behavior, mood, and affect are within normal limits. 21:23 Head/face: Noted is pallor. Vital Signs: 18:53 BP 134 / 90; Pulse 74; Resp 19; Temp 97.4; Pulse Ox 98% on R/A; Weight 90.72 kg; Height aj 5 ft. 11 in. (180.34 cm); Pain 10/10; 18:53 Body Mass Index 27.89 (90.72 kg, 180.34 cm) aj MDM: 20:25 Patient medically screened. snw 22:04 Data reviewed: vital signs, nurses notes. Data interpreted: Pulse oximetry: on room air snw is 98 %. Interpretation: normal. Counseling: I had a detailed discussion with the patient and/or guardian regarding: the historical points, exam findings, and any diagnostic results supporting the discharge/admit diagnosis, lab results, the need for outpatient follow up, to return to the emergency department if symptoms worsen or persist or if there are any questions or concerns that arise at home. Special discussion: Based on the history and exam findings, there is no indication for further emergent testing or inpatient evaluation. I discussed with the patient/guardian the need to see the primary care provider for further evaluation of the symptoms. 09/03 19:38 Order name: ABG; Complete Time: 20:19 snw 09/03 20:42 Order name: CBC with Diff; Complete Time: 21:45 snw 09/03 20:42 Order name: Chem 7; Complete Time: 21:52 snw Administered Medications: 19:51 Drug: Zofran 4 mg Route: PO; rk2 22:30 Follow up: Response: No adverse reaction; Nausea unchanged rk2 21:24 Drug: NS 0.9% 1000 ml Route: IV; Rate: 125 ml/hr; Site: right hand; rk2 22:22 Follow up: IV Status: Completed infusion aa1 22:14 Drug: Phenergan 25 mg Route: IVP; Site: right hand; rk2 22:22 Follow up: Response: No adverse reaction; Nausea is decreased aa1 Disposition: 09/04 08:18 Co-signature as Attending Physician, Bethel William MD I agree with the assessment and ana plan of care. Disposition: 09/03/17 22:03 Discharged to Home. Impression: Headache, Vomiting, unspecified. - Condition is Stable. - Discharge Instructions: Dehydration, Adult, General Headache Without Cause, Nausea and Vomiting, Smoking Cessation, Rehydration, Adult. - Prescriptions for Zofran 4 mg Oral Tablet - take 1 tablet by ORAL route every 12 hours As needed; 20 tablet. - Work release form, Medication Reconciliation Form, Thank You Letter, Antibiotic Education, Prescription Opioid Use form. - Follow up: Private Physician; When: 2 - 3 days; Reason: Recheck today's complaints, Continuance of care, Re-evaluation by your physician. Follow up: Emergency Department; When: As needed; Reason: Worsening of condition. Signatures: Dispatcher [employer] EDMS Jaja Elizabeth RN RN aa1 Jaki Fisher RN RN aj Anderson, Corey, MD MD cha Therrien, Shelly, RAISED PRINTER-C RAISED PRINTER-Csnw Marcia Durand RN RN rk2 Corrections: (The following items were deleted from the chart) 09/03 22:22 22:03 09/03/2017 22:03 Discharged to Home. Impression: Headache; Vomiting, unspecified. aa1 Condition is Stable. Discharge Instructions: Dehydration, Adult, General Headache Without Cause, Nausea and Vomiting, Smoking Cessation, Rehydration, Adult. Prescriptions for Zofran 4 mg Oral Tablet - take 1 tablet by ORAL route every 12 hours As needed; 20 tablet. and Forms are Work release form, Medication Reconciliation Form, Thank You Letter, Antibiotic Education, Prescription Opioid Use. Follow up: Private Physician; When: 2 - 3 days; Reason: Recheck today's complaints, Continuance of care, Re-evaluation by your physician. Follow up: Emergency Department; When: As needed; Reason: Worsening of condition. snw
[2017-09-03] MEDS ORDERED: PROMETHAZINE 25 MG/ML VIAL ONE (22:07)
[2017-09-03 22:26] VITALS: BP 134/90; TEMP 97.4; O2SAT 98
== END 2017-09-03 22:22 | disposition home or self-care (01) ==
LOC: ER 18:49
DX: R51 Headache (principal); E11.9 Type 2 diabetes mellitus without complications; Z79.4 Long term (current) use of insulin
CPT/HCPCS: 36415; 80048; 82805; 85025; 96361; 96374; 99283; J2550; J7030

== ENCOUNTER 2018-06-08 17:25 | Emergency (ER) | payer SELFPAY ==
[2018-06-08] MEDS ORDERED: IBUPROFEN 400 MG TAB ONE (17:50)
[2018-06-08] MEDS ORDERED: IBUPROFEN 200 MG TAB PO ONE (17:51)
[2018-06-08] MEDS ORDERED: ACETAMINOPHEN 500 MG TAB ONE (19:33)
[2018-06-08] MEDS ORDERED: NA CHLORIDE 0.9% 1,000 ML ONE (19:33)
[2018-06-08] MEDS ORDERED: ALBUTEROL 2.5 MG/3 ML NEB SOL ONE (19:46)
[2018-06-08 20:10] LABS: Urine Bacteria NONE SEEN /HPF (NONE SEEN); Urine Culture Reflex Order NOT NEEDED; Urine RBC <5 /HPF (NONE SEEN)
[2018-06-08 20:16] LABS: Urine Blood TRACE (NEG); Urine Glucose 2+ (NEG); Urine Protein TRACE (NEG); Urine pH 6.5 (5.0-7.0)
[2018-06-08] MEDS ORDERED: BENZONATATE 100 MG CAP PO ONE (20:26)
--- NOTE | 2018-06-08 20:40 | RAD REPORT ---
EXAM DESCRIPTION: Teena Leal (2 Views)06/08/2018 8:28 pm CLINICAL HISTORY: Cough COMPARISON: 2016 FINDINGS: The lungs appear clear of acute infiltrate. The heart is normal size IMPRESSION: No acute abnormalities displayed
[2018-06-08 21:20] LABS: BUN Blood Urea Nitrogen 9 mg/dL (7-18); Bicarbonate 26 mmol/L (21-32); Potassium 3.5 mmol/L (3.5-5.1); Sodium Level 132 mmol/L (136-145)
[2018-06-08 21:24] LABS: Glucose Level 512 mg/dL (74-106)
--- NOTE | 2018-06-08 21:50 | ER ---
Nurse's Notes [facility] Name: Devaughn Duff Age: 22 yrs Sex: Male : 1995 Arrival Date: 06/08/2018 Time: 17:27 Bed 2 Private MD: None, None Diagnosis: Influenza due to identified novel influenza A virus;Hyperglycemia, unspecified Presentation: 06/08 17:27 Transition of care: patient was not received from another setting of care. Onset of sg symptoms was June 08, 2018. Risk Assessment: Do you want to hurt yourself or someone else? Patient reports no desire to harm self or others. Care prior to arrival: None. 17:27 Method Of Arrival: Ambulatory sg 17:27 Acuity: MARKIE 3 sg 17:35 Presenting complaint: Patient states: Fever, RLQ abd pain and Nausea/vomiting, reports sg pain radiates down into the right lower back, right flank, reports a cough and unable to sleep at night. Initial Sepsis Screen: Does the patient meet any 2 criteria? No. Patient's initial sepsis screen is negative. Does the patient have a suspected source of infection? No. Patient's initial sepsis screen is negative. Historical: - Allergies: 17:30 NKDA; sg - Home Meds: 17:30 Insulin: Regular Sub-Q [Active]; sg - PMHx: 17:30 Diabetes - IDDM; sg - PSHx: 17:30 None; sg - Immunization history:: Adult Immunizations up to date. - Social history:: Smoking status: Patient/guardian denies using tobacco. - Ebola Screening: : Patient negative for fever greater than or equal to 101.5 degrees Fahrenheit, and additional compatible Ebola Virus Disease symptoms Patient denies exposure to infectious person Patient denies travel to an Ebola-affected area in the 21 days before illness onset No symptoms or risks identified at this time. Screenin:47 Abuse screen: Denies threats or abuse. Denies injuries from another. Nutritional ak1 screening: No deficits noted. Tuberculosis screening: No symptoms or risk factors identified. Fall Risk None identified. Assessment: 19:46 General: Appears uncomfortable, Behavior is calm, cooperative. Pain: Complains of pain ak1 in chest, body aches. Neuro: No deficits noted. Cardiovascular: No deficits noted. Respiratory: Reports shortness of breath cough that is. GI: Abdomen is round. : No signs and/or symptoms were reported regarding the genitourinary system. EENT: No signs and/or symptoms were reported regarding the EENT system. Derm: Reports fever X5days. Musculoskeletal: No signs and/or symptoms reported regarding the musculoskeletal system. 21:53 Reassessment: Patient appears in no apparent distress at this time. Patient is alert, ak1 oriented x 3, equal unlabored respirations, skin warm/dry/pink. Patient states symptoms have improved. Vital Signs: 17:36 BP 137 / 81; Pulse 121; Resp 19; Temp 101.2; Pulse Ox 100% on R/A; Weight 90.72 kg; sg Height 5 ft. 1 in. (154.94 cm); Pain 10/10; 19:45 BP 126 / 60; Pulse 104; Resp 20; Pulse Ox 100% on 15 lpm Nebulizer Mask; ak1 20:45 BP 124 / 67; Pulse 104; Resp 22; Temp 98.4(O); Pulse Ox 96% on R/A; ak1 21:54 BP 134 / 64; Pulse 104; Resp 16; Temp 98.6; Pulse Ox 96% on R/A; ak1 17:36 Body Mass Index 37.79 (90.72 kg, 154.94 cm) sg ED Course: 17:27 Patient arrived in ED. tw3 17:27 None, None is Private Physician. tw3 17:29 Triage completed. sg 17:29 Arm band placed on. sg 19:10 Dennis Beltre MD is Attending Physician. gs 19:12 Maria G Sanchez, RN is Primary Nurse. ak1 19:47 Patient has correct armband on for positive identification. Bed in low position. Call ak1 light in reach. Side rails up X 1. tire rebuilder on. Pulse ox on. NIBP on. 20:27 XRAY Chest Pa And Lat (2 Views) In Process Unspecified. EDMS 21:24 Notified ED physician of a critical lab result(s). Glucose 512 Dr Beltre notified. bb 21:53 No provider procedures requiring assistance completed. IV discontinued, intact, ak1 bleeding controlled, No redness/swelling at site. Pressure dressing applied. Administered Medications: 17:43 Drug: Motrin 600 mg Route: PO; sg 19:40 Follow up: Response: No adverse reaction ak1 19:36 Drug: NS 0.9% 1000 ml Route: IV; Rate: 1 bolus; Site: right antecubital; ak1 20:10 Follow up: IV Status: Completed infusion; IV Intake: 1000ml ak1 19:37 Drug: Tylenol 1000 mg Route: PO; ak1 20:17 Follow up: Response: No adverse reaction ak1 19:45 Drug: Albuterol 2.5 mg Route: Inhalation; ak1 20:10 Follow up: Response: No adverse reaction ak1 20:17 Drug: Tessalon Perle 100 mg Route: PO; ak1 20:48 Follow up: Response: No adverse reaction ak1 21:45 Drug: Insulin Regular Human 5 units {Co-Signature: ed1 (Dilia Lamar RN).} Route: IVP; ak1 Site: right antecubital; 21:52 Follow up: Response: Medication administered at discharge. ak1 Intake: 20:10 IV: 1000ml; Total: 1000ml. ak1 Outcome: 21:49 Discharge ordered by . 21:53 Condition: stable ak1 21:59 Discharged to home ambulatory, with family. ak1 21:59 Discharge instructions given to patient, family, Instructed on discharge instructions, follow up and referral plans. medication usage, Demonstrated understanding of instructions, follow-up care, medications, Prescriptions given X 1, pt given script for insulin syringes in order to start taking his insulin at home. 22:00 Patient left the ED. ak1 Signatures: Dispatcher [employer] EDMS Jake Nam RN RN sg Ballard, Brenda, RN RN bb Krenek, Amber, RN RN [facility] Mercedes Mccoy 3 Dennis Beltre MD MD Dilia Lamar RN ed1 Corrections: (The following items were deleted from the chart) 17:30 17:27 Presenting complaint: Patient states: pt reports having headache at the base of sg her neck, described as contractions, reports that losing voice on Friday, bodyaches started Friday, and today reports having N/V and unable to hold liquids, reports throwing up water as well sg 17:30 17:27 Initial Sepsis Screen: Does the patient meet any 2 criteria? RR > 20 per min. HR sg > 90 bpm. Yes Does the patient have a suspected source of infection? No. Patient's initial sepsis screen is negative. sg 17:34 17:29 BP 121 / 93; Pulse 98bpm; MonitorResp 19bpm; Pulse Ox 100%; Temp 98.0F; 68.95 kg; sg Height 4 ft. 9 in.; BMI: 32.8; Pain 6/10; sg
--- NOTE | 2018-06-08 21:51 | EDPHYS ---
Physician Documentation [facility] Name: Devaughn Duff Age: 22 yrs Sex: Male : 1995 Arrival Date: 06/08/2018 Time: 17:27 Bed 2 Private MD: None, None ED Physician eDnnis Beltre HPI: 06/08 21:45 This 22 yrs old Male presents to ER via Ambulatory with complaints of Fever, gs Cough, Nausea. 21:45 Onset: The symptoms/episode began/occurred yesterday. Modifying factors: there are no gs obvious modifying factors. Associated signs and symptoms: Pertinent positives: chills, cough, sore throat. Severity of symptoms: At their worst the symptoms were moderate in the emergency department the symptoms are unchanged. The patient has experienced similar episodes in the past, a few times. off insulin for awhile. Historical: - Allergies: 17:30 NKDA; sg - Home Meds: 17:30 Insulin: Regular Sub-Q [Active]; sg - PMHx: 17:30 Diabetes - IDDM; sg - PSHx: 17:30 None; sg - Immunization history:: Adult Immunizations up to date. - Social history:: Smoking status: Patient/guardian denies using tobacco. - Ebola Screening: : Patient negative for fever greater than or equal to 101.5 degrees Fahrenheit, and additional compatible Ebola Virus Disease symptoms Patient denies exposure to infectious person Patient denies travel to an Ebola-affected area in the 21 days before illness onset No symptoms or risks identified at this time. ROS: 21:45 All other systems are negative. gs Exam: 21:45 Head/Face: Normocephalic, atraumatic. Eyes: Pupils equal round and reactive to light, gs extra-ocular motions intact. Lids and lashes normal. Conjunctiva and sclera are non-icteric and not injected. Cornea within normal limits. Periorbital areas with no swelling, redness, or edema. ENT: Nares patent. No nasal discharge, no septal abnormalities noted. Tympanic membranes are normal and external auditory canals are clear. Oropharynx with no redness, swelling, or masses, exudates, or evidence of obstruction, uvula midline. Mucous membranes moist. Neck: Trachea midline, no thyromegaly or masses palpated, and no cervical lymphadenopathy. Supple, full range of motion without nuchal rigidity, or vertebral point tenderness. No Meningismus. Chest/axilla: Normal chest wall appearance and motion. Nontender with no deformity. No lesions are appreciated. 21:45 Abdomen/GI: Soft, non-tender, with normal bowel sounds. No distension or tympany. No guarding or rebound. No evidence of tenderness throughout. Back: No spinal tenderness. No costovertebral tenderness. Full range of motion. Skin: Warm, dry with normal turgor. Normal color with no rashes, no lesions, and no evidence of cellulitis. MS/ Extremity: Pulses equal, no cyanosis. Neurovascular intact. Full, normal range of motion. Neuro: Awake and alert, GCS 15, oriented to person, place, time, and situation. Cranial nerves II-XII grossly intact. Motor strength 5/5 in all extremities. Sensory grossly intact. Cerebellar exam normal. Normal gait. 21:45 Constitutional: The patient appears alert, awake. 21:45 Cardiovascular: Rate: tachycardic, Rhythm: regular, Pulses: no pulse deficits are appreciated. 21:45 Respiratory: the patient does not display signs of respiratory distress, Respirations: normal, symetrical, no use of accessory muscles, Breath sounds: rhonchi, that are mild, are heard diffusely. Vital Signs: 17:36 BP 137 / 81; Pulse 121; Resp 19; Temp 101.2; Pulse Ox 100% on R/A; Weight 90.72 kg; sg Height 5 ft. 1 in. (154.94 cm); Pain 10/10; 19:45 BP 126 / 60; Pulse 104; Resp 20; Pulse Ox 100% on 15 lpm Nebulizer Mask; ak1 20:45 BP 124 / 67; Pulse 104; Resp 22; Temp 98.4(O); Pulse Ox 96% on R/A; ak1 21:54 BP 134 / 64; Pulse 104; Resp 16; Temp 98.6; Pulse Ox 96% on R/A; ak1 17:36 Body Mass Index 37.79 (90.72 kg, 154.94 cm) MDM: 19:15 Patient medically screened. 21:45 Differential diagnosis: viral Infection, bacterial infection, pneumonia. Data reviewed: vital signs, nurses notes. Response to treatment: the patient's symptoms have markedly improved after treatment, and as a result, I will discharge patient. 06/08 17:40 Order name: Flu; Complete Time: 19:16 dm5 06/08 17:40 Order name: Strep; Complete Time: 19:16 dm5 06/08 18:05 Order name: Throat Culture EDIA 06/08 19:16 Order name: Urine Microscopic Only; Complete Time: 20:49 gs 06/08 19:35 Order name: Urine Dipstick--Ancillary (enter results); Complete Time: 20:49 ar5 06/08 20:48 Order name: Basic Metabolic Panel; Complete Time: 21:30 ak1 06/08 19:16 Order name: Urine Dipstick-Ancillary (obtain specimen); Complete Time: 19:37 gs 06/08 19:16 Order name: XRAY Chest Pa And Lat (2 Views); Complete Time: 20:49 gs Administered Medications: 17:43 Drug: Motrin 600 mg Route: PO; sg 19:40 Follow up: Response: No adverse reaction ak1 19:36 Drug: NS 0.9% 1000 ml Route: IV; Rate: 1 bolus; Site: right antecubital; ak1 20:10 Follow up: IV Status: Completed infusion; IV Intake: 1000ml ak1 19:37 Drug: Tylenol 1000 mg Route: PO; ak1 20:17 Follow up: Response: No adverse reaction ak1 19:45 Drug: Albuterol 2.5 mg Route: Inhalation; ak1 20:10 Follow up: Response: No adverse reaction ak1 20:17 Drug: Tessalon Perle 100 mg Route: PO; ak1 20:48 Follow up: Response: No adverse reaction ak1 21:45 Drug: Insulin Regular Human 5 units {Co-Signature: ed1 (Dilia Lamar RN).} Route: IVP; ak1 Site: right antecubital; 21:52 Follow up: Response: Medication administered at discharge. ak1 Disposition: 06/08/18 21:49 Discharged to Home. Impression: Influenza due to identified novel influenza A virus, Hyperglycemia, unspecified. - Condition is Stable. - Discharge Instructions: Hyperglycemia, Influenza, Adult, [id number]. - Medication Reconciliation Form, Thank You Letter, Antibiotic Education, Prescription Opioid Use form. - Follow up: Private Physician; When: 1 - 2 days; Reason: Re-evaluation by your physician. - Problem is new. - Symptoms have improved. Signatures: Dispatcher [employer] EDMS Mary Jo Lee RN RN dm5 Jake Nam RN RN sg Maria G Sanchez RN RN ak1 Dennis Beltre MD MD gs Dilia Lamar RN ed1 Corrections: (The following items were deleted from the chart) 22:00 21:49 06/08/2018 21:49 Discharged to Home. Impression: Influenza due to identified ak1 novel influenza A virus; Hyperglycemia, unspecified. Condition is Stable. Forms are Medication Reconciliation Form, Thank You Letter, Antibiotic Education, Prescription Opioid Use. Follow up: Private Physician; When: 1 - 2 days; Reason: Re-evaluation by your physician. Problem is new. Symptoms have improved. gs
[2018-06-08] MEDS ORDERED: INSULIN -REGULAR HUMAN 50 UNIT/0.5 ML ML ONE (21:53)
[2018-06-08 22:08] VITALS: O2SAT 96
[2018-06-08 22:09] VITALS: BP 134/64; TEMP 98.6
== END 2018-06-08 22:00 | disposition home or self-care (01) ==
LOC: ER 17:25
DX: J10.1 Influenza due to other identified influenza virus with other respiratory manifestations (principal); E11.65 Type 2 diabetes mellitus with hyperglycemia; Z79.4 Long term (current) use of insulin
CPT/HCPCS: 36415; 71046; 80048; 81003; 81015; 87070; 87081; 87804; 96361; 96374; 99285; J7030

== ENCOUNTER 2018-06-12 09:31 | Emergency (ER) | payer SELFPAY ==
[2018-06-12] MEDS ORDERED: ALBUTEROL 2.5 MG/3 ML NEB SOL ONE (10:08)
[2018-06-12] MEDS ORDERED: HYDROCODONE/CHLORPHEN 5 ML/OSYR ONE (10:08)
--- NOTE | 2018-06-12 10:52 | RAD REPORT ---
EXAM DESCRIPTION: Teena Leal (2 Views)06/12/2018 10:05 am CLINICAL HISTORY: Cough COMPARISON: June 08, 2017 FINDINGS: The lungs appear clear of acute infiltrate. The heart is normal size IMPRESSION: No acute abnormalities displayed
--- NOTE | 2018-06-12 11:15 | ER ---
Nurse's Notes [facility] Name: Devaughn Duff Age: 22 yrs Sex: Male : 1995 Arrival Date: 06/12/2018 Time: 09:32 Bed 20 Private MD: Unknown, Unknown Diagnosis: Bronchitis, not specified as acute or chronic Presentation: 06/12 09:46 Presenting complaint: Worsening SOB and pain with cough x 1 week. Dx with Flu A on hb Friday. Transition of care: patient was not received from another setting of care. Onset of symptoms was June 08, 2018. Risk Assessment: Do you want to hurt yourself or someone else? Patient reports no desire to harm self or others. Initial Sepsis Screen: Does the patient meet any 2 criteria? No. Patient's initial sepsis screen is negative. Does the patient have a suspected source of infection? No. Patient's initial sepsis screen is negative. Care prior to arrival: None. 09:46 Method Of Arrival: Ambulatory hb 09:46 Acuity: MARKIE 4 hb Historical: - Allergies: 09:47 NKDA; hb - Home Meds: 09:47 Insulin: Regular Sub-Q [Active]; hb - PMHx: 09:47 Diabetes - IDDM; hb - PSHx: 09:47 None; hb - Immunization history:: Adult Immunizations up to date. - Social history:: Smoking status: Patient/guardian denies using tobacco. - Ebola Screening: : No symptoms or risks identified at this time. Screenin:50 Abuse screen: Denies threats or abuse. Nutritional screening: No deficits noted. em Tuberculosis screening: No symptoms or risk factors identified. Fall Risk None identified. Assessment: 09:50 General: Appears in no apparent distress. uncomfortable, Behavior is calm, cooperative, em Denies fever. Pain: Complains of pain in chest Pain currently is 8 out of 10 on a pain scale. Neuro: Level of Consciousness is awake, alert, obeys commands, Oriented to person, place, time, situation. Cardiovascular: Capillary refill < 3 seconds Patient's skin is warm and dry. Rhythm is regular. Respiratory: Reports cough that is pain with cough Airway is patent Respiratory effort is even, unlabored, Breath sounds with rhonchi bilaterally. Onset: The symptoms/episode began/occurred friday. GI: Abdomen is flat, Patient currently denies nausea, vomiting. : No signs and/or symptoms were reported regarding the genitourinary system. EENT: Oral mucosa is moist. Throat is clear. Derm: Skin is intact, is healthy with good turgor, Skin is pink, warm \T\ dry. Musculoskeletal: Range of motion: intact in all extremities. 10:06 Reassessment: I agree with previous assessment. hb 11:20 Reassessment: Patient appears in no apparent distress at this time. Patient and/or em family updated on plan of care and expected duration. Pain level reassessed. Patient is alert, oriented x 3, equal unlabored respirations, skin warm/dry/pink. Vital Signs: 09:47 BP 130 / 85; Pulse 88; Resp 16; Temp 98.1; Pulse Ox 96% on R/A; Pain 8/10; hb 11:20 BP 128 / 78; Pulse 78; Resp 18; Pulse Ox 99% on R/A; Pain 7/10; em ED Course: 09:32 Patient arrived in ED. ag5 09:32 Unknown, Unknown is Private Physician. ag5 09:43 Neto Ornelas NP is PHCP. pm1 09:43 Kaleb Crespo MD is Attending Physician. pm1 09:47 Isrrael Jimenez LVN is Primary Nurse. em 09:47 Triage completed. hb 09:47 Arm band placed on. hb 10:00 Patient moved to radiology via wheelchair. kw 10:00 Patient has correct armband on for positive identification. Bed in low position. Call em light in reach. Adult w/ patient. Pulse ox on. NIBP on. 10:03 X-ray completed. Patient tolerated procedure well. Patient moved back from radiology. sw 10:05 Chest Pa And Lat (2 Views) XRAY In Process Unspecified. EDMS 11:39 No provider procedures requiring assistance completed. Patient did not have IV access em during this emergency room visit. Administered Medications: 09:58 Drug: Tussionex Pennkinetic ER 5 ml Route: PO; em 11:31 Follow up: Response: No adverse reaction em 10:28 Drug: Albuterol 2.5 mg Route: Inhalation; em 11:38 Follow up: Response: No adverse reaction em 11:38 Drug: predniSONE 60 mg Route: PO; em 11:39 Follow up: Response: Medication administered at discharge. em Outcome: 11:14 Discharge ordered by . pm1 11:39 Discharged to home ambulatory, with family. em 11:39 Condition: good 11:39 Discharge instructions given to patient, family, Instructed on discharge instructions, follow up and referral plans. medication usage, Demonstrated understanding of instructions, follow-up care, medications, Prescriptions given X 3. 11:43 Patient left the ED. em Signatures: Dispatcher [employer] EDMS Isrrael Jimenez, SHOWER ROOM ATTENDANT SHOWER ROOM ATTENDANT em Claire Banerjee Shannon sw Marinas, Patrick, STATIONARY EQUIPMENT MECHANIC STATIONARY EQUIPMENT MECHANIC pm1 Sandra Bello RN RN hb Bhavya Blanco ag5 Corrections: (The following items were deleted from the chart) 09:47 09:46 Acuity: MARKIE 3 hb hb
--- NOTE | 2018-06-12 11:15 | EDPHYS ---
Physician Documentation [facility] Name: Devaughn Duff Age: 22 yrs Sex: Male : 1995 Arrival Date: 06/12/2018 Time: 09:32 Bed 20 Private MD: Unknown, Unknown ED Physician Kaleb Crespo HPI: 06/12 10:00 This 22 yrs old Male presents to ER via Ambulatory with complaints of pm1 Shortness Of Breath, Cough. 10:00 The patient has shortness of breath at rest. Onset: The symptoms/episode began/occurred pm1 1 week(s) ago. Duration: The symptoms are continuous. The patient's shortness of breath is aggravated by nothing, is alleviated by nothing. Associated signs and symptoms: Pertinent positives: chest pain, productive cough, Pertinent negatives: Fever resolved yesterday. The patient has been recently seen at the [facility] Emergency Department, this week, diagnosed with flu on Friday. Patient with onset of cough and fever on Friday. Seen here in the ER on Friday and diagnosed with influenza. Patient complaining of chest pain with coughing. Productive cough with yellow sputum. Historical: - Allergies: 09:47 NKDA; hb - Home Meds: 09:47 Insulin: Regular Sub-Q [Active]; hb - PMHx: 09:47 Diabetes - IDDM; hb - PSHx: 09:47 None; hb - Immunization history:: Adult Immunizations up to date. - Social history:: Smoking status: Patient/guardian denies using tobacco. - Ebola Screening: : No symptoms or risks identified at this time. ROS: 10:00 Constitutional: Negative for fever, chills, and weight loss, Eyes: Negative for injury, pm1 pain, redness, and discharge, ENT: Negative for injury, pain, and discharge, Neck: Negative for injury, pain, and swelling. 10:00 Abdomen/GI: Negative for abdominal pain, nausea, vomiting, diarrhea, and constipation, Back: Negative for injury and pain, : Negative for injury, bleeding, discharge, and swelling, MS/Extremity: Negative for injury and deformity, Skin: Negative for injury, rash, and discoloration, Neuro: Negative for headache, weakness, numbness, tingling, and seizure. 10:00 Cardiovascular: Positive for chest pain, with cough, Negative for edema, orthopnea, palpitations. 10:00 Respiratory: Positive for cough, shortness of breath, Negative for wheezing. Exam: 10:00 Constitutional: This is a well developed, well nourished patient who is awake, alert, pm1 and in no acute distress. Head/Face: Normocephalic, atraumatic. Eyes: Pupils equal round and reactive to light, extra-ocular motions intact. Lids and lashes normal. Conjunctiva and sclera are non-icteric and not injected. Cornea within normal limits. Periorbital areas with no swelling, redness, or edema. ENT: Nares patent. No nasal discharge, no septal abnormalities noted. Tympanic membranes are normal and external auditory canals are clear. Oropharynx with no redness, swelling, or masses, exudates, or evidence of obstruction, uvula midline. Mucous membranes moist. Neck: Trachea midline, no thyromegaly or masses palpated, and no cervical lymphadenopathy. Supple, full range of motion without nuchal rigidity, or vertebral point tenderness. No Meningismus. Chest/axilla: Normal chest wall appearance and motion. Nontender with no deformity. No lesions are appreciated. Cardiovascular: Regular rate and rhythm with a normal S1 and S2. No gallops, murmurs, or rubs. Normal PMI, no JVD. No pulse deficits. 10:00 Abdomen/GI: Soft, non-tender, with normal bowel sounds. No distension or tympany. No guarding or rebound. No evidence of tenderness throughout. Back: No spinal tenderness. No costovertebral tenderness. Full range of motion. Skin: Warm, dry with normal turgor. Normal color with no rashes, no lesions, and no evidence of cellulitis. MS/ Extremity: Pulses equal, no cyanosis. Neurovascular intact. Full, normal range of motion. 10:00 Respiratory: the patient does not display signs of respiratory distress, Respirations: normal, Breath sounds: rhonchi, clear with coughing. 10:00 Neuro: Orientation: is normal, Motor: is normal. Vital Signs: 09:47 BP 130 / 85; Pulse 88; Resp 16; Temp 98.1; Pulse Ox 96% on R/A; Pain 8/10; hb 11:20 BP 128 / 78; Pulse 78; Resp 18; Pulse Ox 99% on R/A; Pain 7/10; em MDM: 09:44 Patient medically screened. pm1 11:09 Data reviewed: vital signs. Data interpreted: Pulse oximetry: on room air is 96 %. pm1 Interpretation: normal. Counseling: I had a detailed discussion with the patient and/or guardian regarding: the historical points, exam findings, and any diagnostic results supporting the discharge/admit diagnosis, radiology results, the need for outpatient follow up, to return to the emergency department if symptoms worsen or persist or if there are any questions or concerns that arise at home. 06/12 09:50 Order name: Chest Pa And Lat (2 Views) XRAY; Complete Time: 10:58 pm1 Administered Medications: 09:58 Drug: Tussionex Pennkinetic ER 5 ml Route: PO; em 11:31 Follow up: Response: No adverse reaction em 10:28 Drug: Albuterol 2.5 mg Route: Inhalation; em 11:38 Follow up: Response: No adverse reaction em 11:38 Drug: predniSONE 60 mg Route: PO; em 11:39 Follow up: Response: Medication administered at discharge. em Disposition: 13:47 Co-signature as Attending Physician, Kaleb Crespo MD I agree with the assessment and kdr plan of care. Disposition: 06/12/18 11:14 Discharged to Home. Impression: Bronchitis, not specified as acute or chronic. - Condition is Stable. - Discharge Instructions: Acute Bronchitis, Adult, How to Use an Inhaler, Cough, Adult. - Prescriptions for Medrol (Giovany) 4 mg Oral Tablets, Dose Pack - take 1 tablet by ORAL route as directed - follow package instructions; 1 packet. Albuterol Sulfate 90 mcg/actuation - inhale 1-2 puff by INHALATION route every 4-6 hours; 1 Inhaler. Guaifenesin AC 10- 100 mg/5 mL Oral Liquid - take 10 milliliter by ORAL route every 4 hours As needed; 240 milliliter. - Medication Reconciliation Form, Thank You Letter, Antibiotic Education, Prescription Opioid Use form. - Follow up: Emergency Department; When: As needed; Reason: Worsening of condition. Follow up: Private Physician; When: 2 - 3 days; Reason: Recheck today's complaints, Continuance of care, Re-evaluation by your physician. - Problem is new. - Symptoms have improved. Signatures: Dispatcher [facility] CenterKaleb Montana MD MD kdr Isrrael Jimenez, ENGLISH LANGUAGE LEARNER TUTOR ENGLISH LANGUAGE LEARNER TUTOR em Neto Ornelas, RECEPTIONIST TELEPHONE OPERATOR RECEPTIONIST TELEPHONE OPERATOR pm1 Sandra Bello, RN RN Corrections: (The following items were deleted from the chart) 11:43 11:14 06/12/2018 11:14 Discharged to Home. Impression: Bronchitis, not specified as em acute or chronic. Condition is Stable. Forms are Medication Reconciliation Form, Thank You Letter, Antibiotic Education, Prescription Opioid Use. Follow up: Emergency Department; When: As needed; Reason: Worsening of condition. Follow up: Private Physician; When: 2 - 3 days; Reason: Recheck today's complaints, Continuance of care, Re-evaluation by your physician. Problem is new. Symptoms have improved. pm1
[2018-06-12] MEDS ORDERED: predniSONE 20 MG TAB ONE (11:47)
[2018-06-12 11:51] VITALS: TEMP 98.1
[2018-06-12 11:53] VITALS: BP 128/78; O2SAT 99
== END 2018-06-12 11:43 | disposition home or self-care (01) ==
LOC: ER 09:31
DX: J40 Bronchitis, not specified as acute or chronic (principal); E11.9 Type 2 diabetes mellitus without complications; Z79.4 Long term (current) use of insulin
CPT/HCPCS: 71046; 99284; J7512

== ENCOUNTER 2020-12-01 13:20 | Emergency (ER) | payer SELFPAY ==
--- OUTSIDE RECORDS SUMMARY | 2020-12-01 13:22 | XMS REPORT | Continuity of Care Document ---
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 ~~~~~~~ ~~~~~~~~~~~~~~~ ~~~~~~~ ~~~~~~ Spec Comments: WITH INRPROTHROMBIN [id number] 08:36:00 Test Item Value Reference Range Interpretation Comments PROTHROMBIN TIME 10.1 SECONDS 9.2-12.1 N PATIENT (test code = PTP) INTERNATIONAL NORMAL 0.9 The INR is to be used RATIO (test code = only for monitoring INR) ORAL ANTICOAGULANTTH ERAPY. Indicati on INR Value1. Prophylaxis/naveen atment of: Venous Thrombosis, Pul monary Embolism 2.0 - 3.02. Preventi on of systemic emboli sm from: Tiss ue heart valves 2.0 - 3.0 Acute myocardial infa rction (to present systemic emboli sm)* 2.0 - 3.0 Valvular heart disease 2.0 - 3.0 Atrial fibrillation 2.0 - 3.03. Bottle Filler al prosthetic valv es (high risk) 2.5 - 3.5 * If oral anticoagulant t herapy is elected to preventrecurren t myocardial infa rction, an INR of 2.5-3 .5 isrecommended, consistent with Food and Drug Administrationr ecommen dations. Spec Comments: WITH INRTHROMBOPLASTIN TIME [id number] 08:36:00 Test Item Value Reference Range Interpretation Comments THROMBOPLASTIN TIME 32.5 SECONDS 23.4-37.0 N Therap eutic Range PARTIAL (test code = for Hep kei PTT) EFFECTIVE Heparin IU/mL aPT T Seconds0.3 64.30.7 88.8 Spec Comments: WITH INRBEDSIDE [id number] 08:33:00 Test Item Value Reference Range Interpretation Comments BEDSIDE CREATININE (test code = < 0.5 mg/dL 0.66-1.25 L CREATBED) CBC W/AUTO [id number] 08:27:00 Test Item Value Reference Range Interpretation Comments WHITE BLOOD CELL (test code = 6.3 x10 3/uL 5.0-12.0 N WBC) RED BLOOD CELL (test code = 4.88 x10 6/uL 4.70-6.10 N RBC) HEMOGLOBIN (test code = HGB) 14.8 g/dL 14.0-18.0 N HEMATOCRIT (test code = HCT) 44.1 % 37.0-49.0 N MEAN CELL VOLUME (test code = 90 fL 80-94 N MCV) MEAN CELL HGB (test code = MCH) 30.3 pg 27-31 N MEAN CELL HGB CONCENTRATION 33.6 g/dL 33-37 N (test code = MCHC) RED CELL DISTRIBUTION WIDTH 12.5 % 11.5-15.5 N (test code = RDW) PLATELET COUNT (test code = 238 x10 3/uL 130-400 N PLT) MEAN PLATELET VOLUME (test code 10.6 fL 9.4-16.4 N = MPV) NEUTROPHIL % (test code = NT%) 53.1 % 43-65 N IMMATURE GRANULOCYTE % (test 0.3 % 0.0-2.0 N code = IG%) LYMPHOCYTE % (test code = LY%) 35.0 % 20.5-45.5 N MONOCYTE % (test code = MO%) 9.1 % 5.5-11.7 N EOSINOPHIL % (test code = EO%) 1.9 % 0.9-2.9 N BASOPHIL % (test code = BA%) 0.6 % 0.2-1.0 N NUCLEATED RBC % (test code = 0.0 % 0-1.0 N NRBC%) NEUTROPHIL # (test code = NT#) 3.36 x10 3/uL 2.2-4.8 N IMMATURE GRANULOCYTE # (test 0.02 x10 3/uL 0-0.03 N code = IG#) LYMPHOCYTE # (test code = LY#) 2.22 x10 3/uL 1.3-2.9 N MONOCYTE # (test code = MO#) 0.58 x10 3/uL 0.3-0.8 N EOSINOPHIL # (test code = EO#) 0.12 x10 3/uL 0.0-0.2 N BASOPHIL # (test code = BA#) 0.04 x10 3/uL 0.0-0.1 N
[2020-12-01 15:13] LABS: SARS-COV-2 RT PCR POSITIVE (NEGATIVE)
--- NOTE | 2020-12-01 15:15 | RAD REPORT ---
EXAM DESCRIPTION: RAD - Chest Pa And Lat (2 Views) - 12/01/2020 3:01 pm CLINICAL HISTORY: Chest pain;Congestion;Cough COMPARISON: June 2018 TECHNIQUE: Frontal and lateral views of the chest were obtained. FINDINGS: The lungs are clear. Heart size is normal and central vasculature is within normal limit s. No pleural effusion or pneumothorax seen. No acute bony finding noted. No aortic abnormality. IMPRESSION: No acute cardiopulmonary process. No significant change from comparison study.
--- NOTE | 2020-12-01 15:38 | EDPHYS ---
Physician Documentation [facility] Name: Devaughn Duff Age: 25 yrs Sex: Male : 1995 Arrival Date: 12/01/2020 Time: 13:24 Bed 11 Private MD: ED Physician Bethel William HPI: 12/01 15:39 This 25 yrs old Male presents to ER via Ambulatory with complaints of Chest jr8 Pain. 15:39 Onset: The symptoms/episode began/occurred gradually, 3 day(s) ago, and became worse jr8 and became persistent. Associated signs and symptoms: Pertinent positives: cough, Body aches and chills. The patient has not experienced similar symptoms in the past. The patient has not recently seen a physician. Historical: - Allergies: 13:31 No Known Drug Allergies; tw2 - Home Meds: 13:31 Insulin: Regular Sub-Q [Active]; tw2 - PMHx: 13:31 Diabetes - IDDM; tw2 - PSHx: 13:31 None; tw2 - Immunization history:: Adult Immunizations. - Social history:: Smoking status: Patient reports the use of cigarette tobacco products, smokes one-half pack cigarettes per day. ROS: 15:39 Constitutional: Positive for body aches, chills, malaise. jr8 15:39 Cardiovascular: Positive for chest pain. 15:39 Respiratory: Positive for cough, Negative for shortness of breath, sputum production, wheezing. 15:39 All other systems are negative. Exam: 15:39 Constitutional: This is a well developed, well nourished patient who is awake, alert, jr8 and in no acute distress. Eyes: Pupils equal round and reactive to light, extra-ocular motions intact. Lids and lashes normal. Conjunctiva and sclera are non-icteric and not injected. Cornea within normal limits. Periorbital areas with no swelling, redness, or edema. ENT: Nares patent. No nasal discharge, no septal abnormalities noted. Tympanic membranes are normal and external auditory canals are clear. Oropharynx with no redness, swelling, or masses, exudates, or evidence of obstruction, uvula midline. Mucous membranes moist. Neck: Trachea midline, no thyromegaly or masses palpated, and no cervical lymphadenopathy. Supple, full range of motion without nuchal rigidity, or vertebral point tenderness. No Meningismus. Cardiovascular: Regular rate and rhythm with a normal S1 and S2. No gallops, murmurs, or rubs. Normal PMI, no JVD. No pulse deficits. Respiratory: Lungs have equal breath sounds bilaterally, clear to auscultation and percussion. No rales, rhonchi or wheezes noted. No increased work of breathing, no retractions or nasal flaring. Abdomen/GI: Soft, non-tender, with normal bowel sounds. No distension or tympany. No guarding or rebound. No evidence of tenderness throughout. Back: No spinal tenderness. No costovertebral tenderness. Full range of motion. Skin: Warm, dry with normal turgor. Normal color with no rashes, no lesions, and no evidence of cellulitis. MS/ Extremity: Pulses equal, no cyanosis. Neurovascular intact. Full, normal range of motion. Neuro: Awake and alert, GCS 15, oriented to person, place, time, and situation. Cranial nerves II-XII grossly intact. Motor strength 5/5 in all extremities. Sensory grossly intact. Vital Signs: 13:29 BP 124 / 87; Pulse 106; Resp 18; Temp 97.6(TE); Pulse Ox 99% on R/A; Weight 90.72 kg tw2 (R); MDM: 15:24 Patient medically screened. [facility] 15:41 Data reviewed: vital signs, nurses notes, lab test result(s), radiologic studies, plain jr8 films, and as a result, I will discharge patient. Data interpreted: Pulse oximetry: on room air is 99 %. Interpretation: normal. Counseling: I had a detailed discussion with the patient and/or guardian regarding: the historical points, exam findings, and any diagnostic results supporting the discharge/admit diagnosis, lab results, radiology results, the need for outpatient follow up, a family practitioner, to return to the emergency department if symptoms worsen or persist or if there are any questions or concerns that arise at home. ED course: Counseled patient on worsening respiratory condition and signs and symptoms to watch for. If at any point he were to have this to come back for further evaluation. Otherwise to start [id number] vitamin regimen. No indication for steroids or antibiotics at this time.. 12/01 13:34 Order name: XRAY Chest Pa And Lat (2 Views); Complete Time: 15:24 tw2 12/01 14:04 Order name: Strep; Complete Time: 15:42 cp 12/01 15:13 Order name: COVID-19/FLU A+B; Complete Time: 15:24 EDMS Administered Medications: No medications were administered Disposition: 15:57 Co-signature as Attending Physician, Bethel William MD I agree with the assessment and ana plan of care. Disposition Summary: 12/01/20 15:38 Discharge Ordered Location: Home jr8 Problem: new jr8 Symptoms: have improved jr8 Condition: Stable jr8 Diagnosis - SARS-associated coronavirus as the cause of diseases classified elsewhere jr8 Followup: jr8 - With: Private Physician - When: 5 - 6 days - Reason: Recheck today's complaints, Continuance of care, Re-evaluation by your physician Discharge Instructions: - Discharge Summary Sheet jr8 - COVID-19 jr8 Forms: - Medication Reconciliation Form jr8 - Thank You Letter jr8 - Antibiotic Education jr8 - Prescription Opioid Use jr8 Signatures: Dispatcher [employer] EDMS Bethel William MD MD cha Roszak, Josh, PA PA jr8 Krystyna Ramos, RN RN tw2 Corrections: (The following items were deleted from the chart) 14:20 14:05 CORONAVIRUS+MR.LAB.BRZ ordered. EDMS EDMS 14:22 14:05 Influenza Screen (A \T\ B)+BA.LAB.BRZ ordered. EDMS EDMS
--- NOTE | 2020-12-01 15:38 | ER ---
Nurse's Notes [facility] Name: Devaughn Duff Age: 25 yrs Sex: Male : 1995 Arrival Date: 12/01/2020 Time: 13:24 Bed 11 Private MD: Diagnosis: SARS-associated coronavirus as the cause of diseases classified elsewhere Presentation: 12/01 13:29 Chief complaint: Patient states: for the past 2 or 3 days i have had chills. the past 2 tw2 days i loss sense of smell and taste. i have chills and muscle aches. i have been sleeping a lot. this morning i coughed up a lot blood. i have severe congestion. Coronavirus screen: chills, cough unrelated to allergies, fatigue, fever, muscle pain, runny nose, loss of taste or smell, Client presents with at least one sign or symptom that may indicate coronavirus-19. Standard/surgical mask placed on the client. Provider contacted for isolation considerations. Ebola Screen: Patient denies travel to an Ebola-affected area in the 21 days before illness onset. Initial Sepsis Screen: Does the patient meet any 2 criteria? HR > 90 bpm. No. Patient's initial sepsis screen is negative. Does the patient have a suspected source of infection? No. Patient's initial sepsis screen is negative. Risk Assessment: Do you want to hurt yourself or someone else? Patient reports no desire to harm self or others. Onset of symptoms was December 01, 2020. 13:29 Method Of Arrival: Ambulatory tw2 13:29 Acuity: MARKIE 3 tw2 Triage Assessment: 13:31 General: Appears Behavior is calm, cooperative, appropriate for age. Pain: Complains of tw2 pain in chest with deep breathe. Cardiovascular: Reports chest pain, shortness of breath. Historical: - Allergies: 13:31 No Known Drug Allergies; tw2 - Home Meds: 13:31 Insulin: Regular Sub-Q [Active]; tw2 - PMHx: 13:31 Diabetes - IDDM; tw2 - PSHx: 13:31 None; tw2 - Immunization history:: Adult Immunizations. - Social history:: Smoking status: Patient reports the use of cigarette tobacco products, smokes one-half pack cigarettes per day. Screenin:40 Abuse screen: Denies threats or abuse. Denies injuries from another. Nutritional iw screening: No deficits noted. Tuberculosis screening: No symptoms or risk factors identified. Fall Risk None identified. Assessment: 15:20 General: Appears in no apparent distress. Behavior is calm, cooperative. Pain: iw Complains of pain in chest Pain does not radiate. Pain began 1 day ago. Neuro: Level of Consciousness is awake, alert, obeys commands, Oriented to person, place, time, situation, Moves all extremities. Full function. Cardiovascular: Patient's skin is warm and dry. Respiratory: Respiratory effort is even, unlabored, Respiratory pattern is regular, symmetrical. Vital Signs: 13:29 BP 124 / 87; Pulse 106; Resp 18; Temp 97.6(TE); Pulse Ox 99% on R/A; Weight 90.72 kg tw2 (R); ED Course: 13:24 Patient arrived in ED. mr 13:31 Triage completed. tw2 13:32 Arm band placed on. tw2 13:40 Patient has correct armband on for positive identification. Pulse ox on. iw 14:33 COVID swab sent to lab. Flu and/or RSV swab sent to lab. Strep swab sent to lab. iw 15:00 XRAY Chest Pa And Lat (2 Views) In Process Unspecified. EDMS 15:13 Yasemin Goemz, WILBERT is Primary Nurse. iw 15:24 Julian Osborne PA is PHCP. jr8 15:24 Bethel William MD is Attending Physician. jr8 15:41 No provider procedures requiring assistance completed. Patient did not have IV access iw during this emergency room visit. Patient maintains SpO2 saturation greater than 95% on room air. Administered Medications: No medications were administered Outcome: 15:38 Discharge ordered by . jr8 15:43 Discharged to home ambulatory. iw 15:43 Condition: good 15:43 Discharge instructions given to patient, Instructed on discharge instructions, follow up and referral plans. Demonstrated understanding of instructions, follow-up care. 15:44 Patient left the ED. iw Signatures: Dispatcher [employer] EDKY Niraj Yasemin mr Yasemin Gomez, RN RN iw Julian Osborne PA PA jr8 Krystyna Ramos RN RN tw2
[2020-12-01 15:50] VITALS: BP 124/87; TEMP 97.6; O2SAT 99
== END 2020-12-01 15:44 | disposition home or self-care (01) ==
LOC: ER 13:20
DX: U07.1 COVID-19 (principal); E11.9 Type 2 diabetes mellitus without complications; Z79.4 Long term (current) use of insulin
CPT/HCPCS: 0240U; 71046; 87070; 87081; 99284